=== PATIENT | male | born 1970 | race Caucasian/White ===

== ENCOUNTER → 2019-08-15 13:40 | Outpatient (CLI) | payer MEDICARE, SELFPAY ==
--- NOTE | ~2019-08-15 | MR_ITS ---
EXAMINATION: MR lumbar spine wo con DATE: 08/15/2019 14:13 INDICATION: Low back pain. Prolapsed disc. TECHNIQUE: Magnetic resonance imaging (MRI) of the lumbar spine was performed without intravenous con trast. Sequences included sagittal T2-weighted FSE, sagittal T2-weighted FS FSE, sagittal T1-weighted FSE, and axial T2-weighted FSE. COMPARISON: None FINDINGS: There is 6 degrees levocurvature of lumbar spine. There is a chronic compression fracture o f T11 with 1/5 loss of height. Intervertebral disc heights are normal. The distal spinal cord signal intensity is normal. The conus medullaris is at L1. The following disc levels are specifically discus sed: L1-L2: The disc does not extend beyond the endplate margin. There is mild right facet joint osteoarth ritis. There is no neural foraminal stenosis. There is no central canal stenosis. L2-L3: The disc does not extend beyond the endplate margin. There is mild bilateral facet joint osteo arthritis. There is no neural foraminal stenosis. There is no central canal stenosis. L3-L4: The disc does not extend beyond the endplate margin. There is mild bilateral facet joint osteo arthritis. There is no neural foraminal stenosis. There is no central canal stenosis. L4-L5: The disc does not extend beyond the endplate margin. There is mild bilateral facet joint osteo arthritis. There is no neural foraminal stenosis. There is no central canal stenosis. L5-S1: The disc does not extend beyond the endplate margin. There is moderate left facet joint osteoa rthritis. There is no neural foraminal stenosis. There is no central canal stenosis. IMPRESSION: 1. Multilevel lumbar facet joint osteoarthritis. Reviewed, dictated and finalized at location A. [employer]IZER OPERATOR
== END ==
PROVIDERS: Visit Provider Internal Medicine
DX: M51.26 Other intervertebral disc displacement, lumbar region (principal); M47.816 Spondylosis without myelopathy or radiculopathy, lumbar region
CPT/HCPCS: 72148

== ENCOUNTER → 2019-08-17 10:12 | Outpatient (CLI) | payer MEDICARE, SELFPAY ==
--- NOTE | ~2019-08-17 | XR_ITS ---
EXAMINATION: SACRUM/COCCYX DATE: 08/17/2019 10:31 INDICATION: Low back pain TECHNIQUE: Three views sacrum/coccyx FINDINGS: There is angulation of the coccyx compatible with fracture, not seen on prior lumbar spine series neftali ed 07/27/2017. No acute abnormality of the sacrum is identified. Sacral foramen are symmetric. IMPRESSION: 1. Interval development of angulation of the coccyx compared with prior study, consistent with age-in determinate fracture. Reviewed, dictated and finalized at location A. HER IMPRESSION: 1. Interval development of angulation of the coccyx compared with prior study, consistent with age-indeterminate fracture.
== END ==
PROVIDERS: PCP Internal Medicine; Visit Provider Internal Medicine
DX: M54.5 Low back pain (principal)
CPT/HCPCS: 72220